=== PATIENT | female | born 1990 | race Caucasian/White ===

== ENCOUNTER 2020-09-05 13:38 | Emergency (ER) | payer BC, SELFPAY ==
[2020-09-05] VITALS (23 sets, daily range): BP systolic 123–160; BP diastolic 71–84; PULSE 55–78; RESP 11–24; O2SAT 97–100
--- NOTE | ~2020-09-05 | XR_ITS ---
EXAMINATION: XR chest 2V DATE: 09/05/2020 14:43 INDICATION: Left chest pain. TECHNIQUE: Frontal and lateral views of the chest were obtained. COMPARISON: CT abdomen and pelvis 05/01/2016, chest 2 views 07/24/2015 FINDINGS: There is a new 13 mm nodule in right mid lung zone. No pleural effusion or pneumothorax. Th e heart size is normal. Surgical clips in the right upper quadrant are likely from cholecystectomy. IMPRESSION: 1. New 13 mm nodule in right midlung zone which may be benign or malignant. Noncontrast chest CT is r ecommended. I called this result to Dr. Becerra. Reviewed, dictated and finalized at location A. BENDING MACHINE OPERATOR IMPRESSION: 1. New 13 mm nodule in right midlung zone which may be benign or malignant. Non contrast chest CT is recommended. I called this result to Dr. Becerra.
--- NOTE | ~2020-09-05 | CT_ITS ---
EXAMINATION: CTA chest PE protocol DATE: 09/05/2020 16:55 INDICATION: Chest pain. TECHNIQUE: Computed tomography angiography (CTA) of the chest was performed with 100 mL Omnipaque-350 intravenous contrast timed to evaluate the pulmonary arteries. Coronal maximum intensity projection 3D-reconstructions were created by the technologist. Automated exposure control and iterative reconst ruction technique were employed. The dose-length product was 1076.53 mGy-cm. COMPARISON: Chest 2 views 09/05/2020, CT abdomen and pelvis 04/23/2016 FINDINGS: There is normal atelectasis in the lungs. There is a cluster of nodules in right upper lobe measuring up to 13 mm. No pleural effusion. The heart size is normal. No pericardial effusion. There is no pulmonary embolus. There is diffuse hepatic steatosis. There are changes of cholecystectomy. T here is mild thoracic spondylosis. IMPRESSION: 1. No pulmonary embolus. 2. Cluster of nodules measuring up to 13 mm in right lung upper lobe, most likely granulomatous disea se. Noncontrast low-dose chest CT is recommended in 3 months. Reviewed, dictated and finalized at location A. GER PHP IMPRESSION: 1. No pulmonary embolus. 2. Cluster of nodules measuring up to 13 mm in right lung upper lobe, most like ly granulomatous disease. Noncontrast low-dose chest CT is recommended in 3 mon ths.
--- NOTE | 2020-09-05 13:45 | ECG_ITS ---
Measurements Intervals [place] Rate: 58 P: 36 ND: 168 QRS: 19 QRSD: 91 T: 57 QT: 423 QTc: 416 Interpretive Statements SINUS BRADYCARDIA WITH SINUS ARRHYTHMIA NONSPECIFIC T-WAVE ABNORMALITY- HIGH LATERAL LEADS BORDERLINE ECG Electronically Signed On 09-05-2020 15:11:27 [employer] RESEARCH SCIENTIST by Talib Quintanilla D.O.
--- NOTE | 2020-09-05 14:16 | ED.GENADULT ---
HPI - General Adult General Chief complaint: Chest Pain Stated complaint: Chest Pain Time Seen by Provider: 09/05/20 13:44 Source: patient History of Present Illness HPI narrative: Patient is a 30 y/o female complaining of left sided chest pain starting 2 days ago. She describes her pain as a pressure and rates it as 8/10. Her pain radiates to left arm sometimes. There is no alleviating or exacerbating factor. She also has some SOB. She denies fever or cough. Related Data Home Medications Medication Instructions Recorded Confirmed cholecalciferol (vitamin D3) 1,250 mcg PO WEEKLY 09/05/20 fluoxetine 20 mg PO DAILY 09/05/20 metformin 500 mg PO BID 09/05/20 omeprazole 40 mg PO DAILY 09/05/20 spironolactone 100 mg PO BID 09/05/20 Allergies Allergy/AdvReac Type Severity Reaction Status Date / Time No Known Allergies Allergy Unknown Verified 09/05/20 14:01 Review of Systems Constitutional: Constitutional: Denies chills, Denies fever(s), Denies headache(s) and Denies weakness Eyes: Eyes: Denies blurry vision ENT: Denies headache(s) and Denies neck pain Cardiovascular: Cardiovascular: Reports chest pain and Reports dyspnea Respiratory: Respiratory: Denies cough and Reports dyspnea Gastrointestinal: Gastrointestinal: Denies abdominal pain, Denies diarrhea, Denies nausea and Denies vomiting Genitourinary: Genitourinary: Denies hematuria and Denies dysuria Musculoskeletal: Musculoskeletal: Denies back pain and Denies neck pain Neurologic: Denies headache(s) and Denies weakness PMFSH Family History Family History Mother Family history of migraine headaches Hypertension Family history of diabetes mellitus in first degree relative Patient's mother is in good health Family history of elevated blood lipids Father Hypertension Family history of elevated blood lipids Grandparent Family history of malignant melanoma Family history of heart disease in male family member before age 55 Diabetes mellitus Other Family history of gallbladder disease Social History Social History Smoking status: Never smoker Second hand tobacco smoke exposure: Yes Alcohol intake: never Gender identity (if verbalized by the patient): Female Exam Const: General: no acute distress and well developed Orientation/consciousness: oriented to person, oriented to place, oriented to time and patient oriented x3 HENMT: Head: normocephalic Ears: external ears normal General nose exam: Normal external nose present Eyes: General: appearance normal, both eyes and all related structures Conjunctivae: conjunctivae normal Neck: Neck: normal visual inspection and full ROM Chest: Chest palpation & inspection: normal inspection of the chest and no tenderness Resp: Effort & Inspection: normal respiratory effort Auscultation: clear to auscultation bilaterally Cardio: Rate: regular rate Rhythm: regular rhythm GI: GI Palp: No abdominal tenderness and Yes Soft to palpation Skin: General skin exam: normal color and turgor normal Neuro: General: oriented to person, oriented to place, oriented to time and patient oriented x3 Cognition (Neuro): normal cognition Extrem: General: normal to inspection, full ROM and no pedal edema Psych: Appearance: grossly normal Mental Status: mental status grossly normal Affect: normal affect Course Vital Signs Vital signs: Vital Signs Pulse Rate 63 09/05/20 13:54 Respiratory Rate 14 09/05/20 13:54 Blood Pressure 125/78 09/05/20 13:54 Pulse Oximetry 98 09/05/20 13:54 Pulse Rate 55 L 09/05/20 19:43 Respiratory Rate 16 09/05/20 19:43 Blood Pressure 160/84 H 09/05/20 19:43 Pulse Oximetry 100 09/05/20 19:43 Medical Decision Making Vital Signs Vital Signs: Vital Signs Pulse Rate 63 09/05/20 13:54 Respiratory Rate 14 09/05/20 13:54 Blood P
[2020-09-05 15:05] LABS: Basophils Percent Auto 0.4 % (0.2-1.2); Eosinophils Absolute Auto 0.1 K/mm3 (0-0.3); Eosinophils Percent Auto 1.4 % (0-4.4); Hematocrit 39.1 % (37.0-47.0); Hemoglobin 13.3 g/dL (12.0-15.0); Immature Granulocyte Absolute 0.02 K/mm3 (0.00-0.031); Immature Granulocyte Percent A 0.3 % (0-0.5); Lymphocytes Absolute Auto 2.44 K/mm3 (0.9-3.2); Lymphocytes Percent Auto 35.3 % (18.3-44.2); Mean Corpuscular Hemoglobin 30.5 pg (26-34); Mean Corpuscular Volume 89.7 fl (80-100); Mean Platelet Volume 10.1 fl (7.4-10.4); Monocytes Absolute Auto 0.5 K/mm3 (0.1-0.6); Monocytes Percent Auto 6.7 % (2.6-8.5); Neutrophils Absolute Auto 3.9 K/mm3 (1.3-6.7); Neutrophils Percent Auto 55.9 % (45.5-73.1); Platelet Count Result 293 k/mm3 (150-375); Red Blood Count 4.36 M/mm3 (4.2-5.4); Red Cell Distribution Width 12.1 % (11.5-14.5); White Blood Count 6.9 K/mm3 (4.5-10.0)
[2020-09-05 15:07] LABS: Add Urine Microscopic? NO; Appearance Urine Clear (Clear); Bilirubin Urine Negative (Negative); Blood Urine Negative (Negative); Color Urine Yellow (Yellow); Glucose Urine UA Negative (Negative); Ketones Urine Negative (Negative); Leukocyte Esterase Ur Negative LEU/UL (Negative); Nitrate Urine Negative (Negative); Protein Urine Negative (Negative); Specific Grav Ur 1.018 (1.001-1.035); Urobilinogen Urine Negative mg/dL (<2.0)
[2020-09-05 15:17] LABS: D Dimer 1.45 ug/mL (<0.48)
[2020-09-05 15:22] LABS: Alanine Aminotransferase 24 U/L (4-35); Albumin Level 4.2 g/dL (3.5-5.1); Alkaline Phosphatase 53 U/L (38-126); Anion Gap 6 mmol/L (8-16); Aspartate Amino Transferase 29 U/L (14-36); Bilirubin,Total 1.3 mg/dL (0.2-1.3); Blood Urea Nitrogen 13 mg/dL (7-17); Calcium 9.2 mg/dL (8.4-10.2); Carbon Dioxide 30 mmol/L (22-30); Chloride 103 mmol/L (98-107); Estimated CRCL calculation 154 ml/min; Estimated Glomerular Filt Rate > 60; Glucose 108 mg/dL (65-105); Potassium 3.8 mmol/L (3.4-5.0); Sodium 139 mmol/L (137-145)
[2020-09-05 15:33] LABS: Troponin I < 0.012 ng/mL (0.000-0.034)
[2020-09-05 19:12] LABS: Troponin I < 0.012 ng/mL (0.000-0.034)
[2020-09-05] MEDS: KETOROLAC 30 MG/ML VIAL (*BKC) IV PUSH (19:39)
== END 2020-09-05 20:02 | disposition home or self-care (01) ==
PROVIDERS: Emergency Provider Emergency Medicine; PCP Family Medicine Sports Medicine
DX: R07.9 Chest pain, unspecified (principal); R00.1 Bradycardia, unspecified
CPT/HCPCS: 36415; 71046; 71275; 80053; 81003; 81025; 84484; 85025; 85380; 93005; 96374; 99284; J1885; Q9967